=== PATIENT | male | born 1985 | race Caucasian/White ===

== ENCOUNTER 2019-01-11 16:43 | Outpatient (REF) | payer OTHER, SELFPAY ==
[2019-01-11 19:58] LABS: Anion Gap 9.7 mmol/L (3-11); BUN 13 mg/dL (7-18); CO2 26.3 mmol/L (21.0-32.0); CREATININE 1.04 mg/dL (0.70-1.30); Chloride 103 mmol/L (98-107); Glucose 92 mg/dL (74-106); Potassium 3.8 mmol/L (3.5-5.1); Sodium 139 mmol/L (136-145); TSH (W/Ref FT4) 2.57 uIU/mL (0.36-3.74)
== END 2019-01-11 17:03 ==
LOC: NCHCN 16:43
PROVIDERS: PCP Nurse Practitioner Family; Visit Provider Family Medicine
DX: R25.2 Cramp and spasm (principal); R03.0 Elevated blood-pressure reading, without diagnosis of hypertension
CPT/HCPCS: 80048; 83735; 84443

== ENCOUNTER 2019-12-13 18:49 | Outpatient (REF) | payer OTHER, SELFPAY ==
[2019-12-13 20:11] LABS: Hemoglobin A1C 5.4 % (<5.7)
[2019-12-13 20:13] LABS: Calculated LDL 116 mg/dL (<100); Cholesterol 249 mg/dL (<200); HDL Cholesterol 56 mg/dL (40-60); Triglyceride 389 mg/dL (<150)
== END 2019-12-13 19:09 ==
LOC: NCHCN 18:49
PROVIDERS: PCP Nurse Practitioner Family; Visit Provider Family Medicine
DX: Z00.00 Encounter for general adult medical examination without abnormal findings (principal)
CPT/HCPCS: 80061; 83036

== ENCOUNTER 2023-02-18 00:54 | Outpatient (CLI) | payer BC, SELFPAY ==
[2023-02-18 09:50] LABS: Hemoglobin A1C 5.3 % (<5.7)
[2023-02-18 10:14] LABS: ALT 98 U/L (16-63); AST 48 U/L (15-37); Albumin 4.5 g/dL (3.4-5.0); Alkaline Phosphatase 86 U/L (46-116); Anion Gap 9.9 mmol/L (3-11); BUN 14 mg/dL (7-18); Bilirubin, Total 0.5 mg/dL (0.2-1.0); CO2 30.1 mmol/L (21.0-32.0); CREATININE 1.1 mg/dL (0.70-1.30); Calcium 9.9 mg/dL (8.5-10.1); Calculated LDL 212 mg/dL (<100); Chloride 99 mmol/L (98-107); Cholesterol 353 mg/dL (<200); Estimated GFR 89.78 (mL/min/1.73m2); Glucose 106 mg/dL (74-106); HDL Cholesterol 68 mg/dL (40-60); Potassium 3.9 mmol/L (3.5-5.1); Sodium 139 mmol/L (136-145); Total Protein 8.7 g/dL (6.4-8.2); Triglyceride 368 mg/dL (<150)
[2023-02-23 12:31] LABS: Testosterone, Total 284 ng/dL (240-950)
== END 2023-02-18 00:55 | disposition home or self-care (01) ==
LOC: LBO 00:55
PROVIDERS: PCP Nurse Practitioner Family; Visit Provider Family Medicine
DX: Z68.36 Body mass index [BMI] 36.0-36.9, adult (principal); E66.9 Obesity, unspecified
CPT/HCPCS: 36415; 80053; 80061; 84403; 83036

== ENCOUNTER 2024-09-06 10:30 | Outpatient (REF) | payer BC, SELFPAY ==
[2024-09-06 17:27] LABS: ALT 38 U/L (16-63); AST 28 U/L (15-37); Albumin 3.8 g/dL (3.4-5.0); Alkaline Phosphatase 102 U/L (46-116); Anion Gap 8.4 mmol/L (3-11); BUN 10 mg/dL (7-18); Bilirubin, Total 0.6 mg/dL (0.2-1.0); CO2 27.6 mmol/L (21.0-32.0); Calcium 9.3 mg/dL (8.5-10.1); Chloride 104 mmol/L (98-107); Estimated GFR 112.81 (mL/min/1.73m2); GGT 68 U/L (15-85); Glucose 106 mg/dL (74-106); Potassium 4.8 mmol/L (3.5-5.1); Sodium 140 mmol/L (136-145); Total Protein 7.5 g/dL (6.4-8.2)
[2024-09-14 21:33] LABS: Testosterone, Free 45.5 pg/mL (35.0-155.0)
== END 2024-09-06 10:31 | disposition home or self-care (01) ==
LOC: NCHCN 10:30
PROVIDERS: PCP Nurse Practitioner Family; Visit Provider Nurse Practitioner Family
DX: R74.01 Elevation of levels of liver transaminase levels (principal); R89.1 Abnormal level of hormones in specimens from other organs, systems and tissues
CPT/HCPCS: 80053; 84402; 84403; 82977

== ENCOUNTER 2024-11-30 16:24 | Outpatient (REF) | payer SELFPAY ==
[2024-11-30 19:36] LABS: Calculated LDL 153 mg/dL (<100); Cholesterol 267 mg/dL (<200); HDL Cholesterol 53 mg/dL (>or=40); Triglyceride 309 mg/dL (<150)
[2024-12-01 18:21] LABS: FSH 6.2 mIU/mL (1.4-18.1); LH 3.1 mIU/mL (1.5-9.3)
== END 2024-11-30 16:25 | disposition home or self-care (01) ==
LOC: NCHCN 16:24
PROVIDERS: PCP Nurse Practitioner Family; Visit Provider Nurse Practitioner Family
DX: R89.1 Abnormal level of hormones in specimens from other organs, systems and tissues (principal); E78.5 Hyperlipidemia, unspecified
CPT/HCPCS: 80061; 83001; 83002